=== PATIENT | female | born 1940 | race Caucasian/White ===

== ENCOUNTER 2017-10-28 07:09 | Emergency (ER) | payer MEDICARE, OTHER ==
[2017-10-28 07:54] LABS: #Eosinphils 0.1 thou/uL (0.0-0.7); #Lymphocytes 0.8 thou/uL (1.20-3.40); #Monocytes 0.8 thou/uL (0.11-0.59); #Neutrophils 11.6 thou/uL (1.40-6.50); %Basophils 0.2 % (0.0-1.0); %Eosinophils 0.8 % (0.0-10.0); %Monocytes 6.2 % (0.0-10.0); %Neutrophils 86.9 % (42.0-75.0); Hemoglobin 15.2 g/dL (12.0-16.0); Mean Corpuscular HGB CONC 33.6 g/dL (32.0-36.0); Mean Corpuscular Hemoglobin 32.7 pg (27.0-31.0); Mean Corpuscular Volume 97.3 fL (78.0-98.0); Mean Platelet Volume 7.2 fL (7.4-10.4); Platelet Count 171 thou/uL (130-400); Red Blood Cell (RBC) Count 4.66 mill/uL (4.20-5.40); White Blood Cell (WBC) Count 13.3 thou/uL (4.8-10.8)
[2017-10-28 08:16] LABS: ALT (SGPT) 10 U/L (8-55); AST (SGOT) 16 U/L (5-34); Albumin 4.2 g/dL (3.4-4.8); Alkaline Phosphatase 79 U/L (40-150); Anion Gap 12 mmol/L (10-20); BUN (Urea Nitrogen) 11 mg/dL (9.8-20.1); Calc. Creatinine Clearance 0 mL/min (70-130); Calcium 9.7 mg/dL (7.8-10.44); Carbon Dioxide 26 mmol/L (23-31); Chloride 107 mmol/L (98-107); Estimated GFR-MDRD 73; Glucose 148 mg/dL (83-110); Lipase 16 U/L (8-78); Protein, Total 7.2 g/dL (6.0-8.3); Sodium 141 mmol/L (136-145)
[2017-10-28 08:40] LABS: Bilirubin Negative (Negative); Blood, Urine Negative (Negative); Clarity CLEAR (Clear); Glucose, Urine (Dipstick) Negative (Negative); Leukocyte Negative (Negative); Nitrite Negative (Negative); Protein, Urine (Dipstick) Negative (Neg-Trace); Specific Gravity, Urine 1.012 (1.002-1.036); Urobilinogen 0.2 mg/dL (0.2-1.0); pH, Urine 6.5 (5.0-9.0)
--- NOTE | 2017-10-28 10:16 | CT ---
CT OF THE ABDOMEN AND PELVIS WITH IV CONTRAST: Date; 10/28/17 PROVIDED CLINICAL HISTORY: Abdominal pain. FINDINGS: Comparison made with the study dated 04/21/17. Visualized lung bases are free of significant opacity. The solid abdominal organs demonstrate a stable CT appearance. There is focal mural thickening and inflammatory fat stranding involving the mid descending colon wit h diverticula seen in this region. There is no evidence for focal fluid collection or extraluminal ga s. There is no bowel dilatation, additional inflammatory fat stranding, or free air apparent. Trace free fluid in the pelvic cul-de-sac. Pessary device is seen. Vascular calcifications are noted. Changes of prior cholecystectomy are seen. The osseous structures demonstrate no concerning lytic or blastic lesions. Degenerative changes are s een. IMPRESSION: Findings compatible with uncomplicated descending colon diverticulitis. POS: [facility]L
[2017-10-28] MEDS ORDERED: ISOVUE-370 76%-LOCM 1 ML ONE (12:23)
== END 2017-10-28 09:38 | disposition home or self-care (01) ==
LOC: ERS 07:09
DX: K57.92 Diverticulitis of intestine, part unspecified, without perforation or abscess without bleeding (principal); E03.9 Hypothyroidism, unspecified; I10 Essential (primary) hypertension; E78.5 Hyperlipidemia, unspecified; Z79.891 Long term (current) use of opiate analgesic; Z79.899 Other long term (current) drug therapy; Z79.82 Long term (current) use of aspirin
CPT/HCPCS: 36415; 74177; 80053; 81003; 83690; 85025; 96360; 96361

== ENCOUNTER 2020-12-20 00:43 | Emergency (ER) | payer MEDICARE, OTHER ==
[2020-12-20 01:16] LABS: #Eosinphils 0.2 thou/uL (0.0-0.7); #Lymphocytes 1.1 thou/uL (1.20-3.40); #Monocytes 0.7 thou/uL (0.11-0.59); #Neutrophils 9.3 thou/uL (1.40-6.50); %Basophils 0.2 % (0.0-1.0); %Eosinophils 1.6 % (0.0-10.0); %Lymphocytes 9.9 % (21.0-51.0); %Monocytes 6.3 % (0.0-10.0); Hemoglobin 14.8 g/dL (12.0-16.0); Mean Corpuscular HGB CONC 36.5 g/dL (32.0-36.0); Mean Corpuscular Hemoglobin 35.4 pg (27.0-31.0); Mean Platelet Volume 7.1 fL (7.4-10.4); Platelet Count 247 thou/uL (130-400); RBC Distribution Width 11.4 % (11.5-14.5); Red Blood Cell (RBC) Count 4.17 mill/uL (4.20-5.40); White Blood Cell (WBC) Count 11.3 thou/uL (4.8-10.8)
[2020-12-20 01:38] LABS: ALT (SGPT) 10 U/L (8-55); AST (SGOT) 20 U/L (5-34); Albumin 3.8 g/dL (3.4-4.8); Alkaline Phosphatase 73 U/L (40-110); Anion Gap 14 mmol/L (10-20); BUN (Urea Nitrogen) 17 mg/dL (9.8-20.1); Bilirubin, Total 0.6 mg/dL (0.2-1.2); Calc. Creatinine Clearance 0 mL/min (70-130); Calcium 9.6 mg/dL (7.8-10.44); Carbon Dioxide 24 mmol/L (23-31); Chloride 104 mmol/L (98-107); Globulin 3.4 g/dL (2.4-3.5); Glucose 145 mg/dL (83-110); Lipase 17 U/L (8-78); Potassium 4.2 mmol/L (3.5-5.1); Protein, Total 7.2 g/dL (5.8-8.1); Sodium 138 mmol/L (136-145)
[2020-12-20 02:08] LABS: Bilirubin Negative (Negative); Blood, Urine Negative (Negative); Clarity Turbid (Clear); Glucose, Urine (Dipstick) Normal (Negative); Ketone, Urine Negative (Negative); Leukocyte Negative Leu/uL (Negative); Nitrite Negative (Negative); Protein, Urine (Dipstick) 10 mg/dL (Neg-Trace); Urobilinogen Normal mg/dL (Less than 2)
[2020-12-20] MEDS ORDERED: Iopamidol-370 76% 500 ML 1 ML ONE (09:53)
== END 2020-12-20 04:43 | disposition home or self-care (01) ==
LOC: ERS 00:43
DX: K57.32 Diverticulitis of large intestine without perforation or abscess without bleeding (principal); E03.9 Hypothyroidism, unspecified; I10 Essential (primary) hypertension; E78.5 Hyperlipidemia, unspecified; E78.00 Pure hypercholesterolemia, unspecified; Z79.82 Long term (current) use of aspirin; Z79.899 Other long term (current) drug therapy
CPT/HCPCS: 36415; 74177; 80053; 81003; 83690; 85025; Q9967

== ENCOUNTER 2020-12-31 15:52 | Observation (INO) | payer MEDICARE, OTHER ==
[2020-12-31 17:02] LABS: Hemoglobin 15.3 g/dL (12.0-16.0); Mean Corpuscular HGB CONC 33.6 g/dL (32.0-36.0); Mean Corpuscular Hemoglobin 32.4 pg (27.0-31.0); Mean Corpuscular Volume 96.5 fL (78.0-98.0); Platelet Count 250 thou/uL (130-400); RBC Distribution Width 11.3 % (11.5-14.5); Red Blood Cell (RBC) Count 4.73 mill/uL (4.20-5.40); White Blood Cell (WBC) Count 14.8 thou/uL (4.8-10.8)
[2020-12-31 17:08] LABS: Platelet Count 250 thou/uL (130-400)
[2020-12-31 17:10] LABS: Fibrinogen 362 mg/dL (253-463)
[2020-12-31] MEDS ORDERED: Piperacillin/Tazobactam 4.5 GM VIAL ONE (17:10)
[2020-12-31 17:11] LABS: PTT 29.1 sec (22.9-36.1); Prothrombin Time 13.1 sec (12.0-14.7)
[2020-12-31 17:12] LABS: D-Dimer Test 1.28 *mcg/mL (0.27-0.43)
[2020-12-31 17:19] LABS: Band 18 % (5-11); Lymphocytes 1 % (21-51); MDiff Complete? YES; Neutrophil 80 % (42-75); Platelet Morphology Comment Appears Adequate; RBC Morphology Normal; Reactive Lymphocytes 1 % (0-10); Vacuoles SLIGHT
[2020-12-31 17:20] LABS: FSP-Qualitative ABNORMAL (Normal); FSP-Semiquantitative >=5 & <20 mcg/mL (Less than 5)
[2020-12-31 17:28] LABS: ALT (SGPT) 10 U/L (8-55); AST (SGOT) 20 U/L (5-34); Albumin 4.1 g/dL (3.4-4.8); Alkaline Phosphatase 74 U/L (40-110); Anion Gap 17 mmol/L (10-20); BUN (Urea Nitrogen) 20 mg/dL (9.8-20.1); Bilirubin, Total 0.6 mg/dL (0.2-1.2); Calc. Creatinine Clearance 0 mL/min (70-130); Calcium 9.6 mg/dL (7.8-10.44); Carbon Dioxide 22 mmol/L (23-31); Chloride 102 mmol/L (98-107); Globulin 2.9 g/dL (2.4-3.5); Glucose 178 mg/dL (83-110); Potassium 3.6 mmol/L (3.5-5.1); Sodium 137 mmol/L (136-145)
[2020-12-31] MEDS ORDERED: Midazolam HCl 2 mg/2 ml Vial ONE (20:12)
[2020-12-31 21:28] LABS: Bilirubin Negative (Negative); Blood, Urine Negative (Negative); Clarity Clear (Clear); Glucose, Urine (Dipstick) Normal (Negative); Ketone, Urine 10 mg/dL (Negative); Leukocyte Negative Leu/uL (Negative); Nitrite Negative (Negative); Protein, Urine (Dipstick) Negative (Neg-Trace); Urobilinogen Normal mg/dL (Less than 2); pH, Urine 5.5 (5.0-9.0)
[2020-12-31 21:29] LABS: Specific Gravity, Urine Greater than 1.060 (1.002-1.036)
[2020-12-31] MEDS ORDERED: Dextrose 5 %-0.45 % NaCl 1,000 ML IV SCH (23:15)
[2020-12-31] MEDS ORDERED: Piperacillin/Tazobactam 3.375 GM in Sodium Chloride 0.9% 100 ML IVPB SCH (23:30)
[2021-01-01 01:00] VITALS: BMI 28.0
[2021-01-01] MEDS: Piperacillin/Tazobactam 3.375 GM in Sodium Chloride 0.9% 100 ML IVPB SCH ×3 (06:23→23:04)
[2021-01-01] MEDS: Sodium Chloride 0.9% 1,000 ML IV SCH ×3 (06:24→23:24)
[2021-01-01] MEDS ORDERED: Piperacillin/Tazobactam 3.375 GM in Sodium Chloride 0.9% 100 ML IVPB SCH (09:00)
[2021-01-01] MEDS ORDERED: MD-Gastroview 120 ML BOT ONE (15:17)
[2021-01-01 17:14] LABS: SARS-CoV-2 PCR by NAA Not Detected (NotDetected)
[2021-01-02 09:03] LABS: #Lymphocytes 0.9 thou/uL (1.20-3.40); #Monocytes 0.4 thou/uL (0.11-0.59); #Neutrophils 6.5 thou/uL (1.40-6.50); %Basophils 0.2 % (0.0-1.0); %Eosinophils 0.4 % (0.0-10.0); %Lymphocytes 11.5 % (21.0-51.0); %Monocytes 5.6 % (0.0-10.0); %Neutrophils 82.3 % (42.0-75.0); Hemoglobin 13.9 g/dL (12.0-16.0); Mean Corpuscular HGB CONC 33.6 g/dL (32.0-36.0); Mean Corpuscular Hemoglobin 32.7 pg (27.0-31.0); Mean Corpuscular Volume 97.3 fL (78.0-98.0); Mean Platelet Volume 7.1 fL (7.4-10.4); Platelet Count 234 thou/uL (130-400); RBC Distribution Width 11.5 % (11.5-14.5); Red Blood Cell (RBC) Count 4.27 mill/uL (4.20-5.40); White Blood Cell (WBC) Count 7.9 thou/uL (4.8-10.8)
[2021-01-02 09:21] LABS: Anion Gap 15 mmol/L (10-20); BUN (Urea Nitrogen) 22 mg/dL (9.8-20.1); Calc. Creatinine Clearance 59 mL/min (70-130); Calcium 9.4 mg/dL (7.8-10.44); Carbon Dioxide 22 mmol/L (23-31); Chloride 109 mmol/L (98-107); Glucose 156 mg/dL (83-110); Potassium 3.7 mmol/L (3.5-5.1); Sodium 142 mmol/L (136-145)
[2021-01-02] MEDS: Sodium Chloride 0.9% 1,000 ML IV SCH (09:39)
[2021-01-02] MEDS: Piperacillin/Tazobactam 3.375 GM in Sodium Chloride 0.9% 100 ML IVPB SCH (09:39)
[2021-01-02 16:57] VITALS: BP 144/73; TEMP 98.3
== END 2021-01-02 16:46 | disposition home or self-care (01) ==
LOC: ERS 15:52 → SURG A 21:12
PROVIDERS: ADMIT Student in an Organized Health Care Education/Training Program; ATTEND Internal Medicine
DX: K56.600 Partial intestinal obstruction, unspecified as to cause (principal); K57.32 Diverticulitis of large intestine without perforation or abscess without bleeding; E03.9 Hypothyroidism, unspecified; E78.5 Hyperlipidemia, unspecified; I10 Essential (primary) hypertension; Z79.2 Long term (current) use of antibiotics; Z88.2 Allergy status to sulfonamides; Z88.8 Allergy status to other drugs, medicaments and biological substances; Z20.822 Contact with and (suspected) exposure to COVID-19
CPT/HCPCS: 74177; 74250; 80048; 80053; 81003; 83605; 85025 ×2; 85049; 85300; 85362; 85379; 85384; 85610; 85730; 87040; 96365; 96375; 99285; U0003; U0005; 36415; G0378; J2250; J2543; J3490; J7042; J7050; Q9963

== ENCOUNTER 2021-03-08 10:29 | Outpatient (CLI) | payer MEDICARE, OTHER ==
[2021-03-08] MEDS ORDERED: Iopamidol 370 76% 100 ML VIAL ONE (11:03)
[2021-03-08] MEDS ORDERED: Iopamidol 370 76% 50 ML VIAL FS ONE (11:03)
== END 2021-03-08 10:30 | disposition home or self-care (01) ==
LOC: CT 10:29
PROVIDERS: ATTEND Internal Medicine Gastroenterology
DX: R10.32 Left lower quadrant pain (principal); K57.30 Diverticulosis of large intestine without perforation or abscess without bleeding; K76.9 Liver disease, unspecified; Z90.710 Acquired absence of both cervix and uterus; Z90.49 Acquired absence of other specified parts of digestive tract
CPT/HCPCS: 74177; Q9967

== ENCOUNTER 2021-09-10 21:30 | Inpatient (IN) | payer MEDICARE, OTHER ==
[2021-09-10] MEDS ORDERED: Aspirin Chewable 81 MG TAB ONE (22:15)
[2021-09-11 00:57] VITALS: BMI 25.6
[2021-09-11] MEDS ORDERED: Ondansetron PF 4 MG/2 ML Vial IVP PRN (01:15)
[2021-09-11] MEDS ORDERED: Acetaminophen 325 MG TAB PO PRN (01:15)
[2021-09-11] MEDS ORDERED: Ondansetron ODT 4 MG TAB SL PRN (01:15)
[2021-09-11] MEDS ORDERED: Lorazepam 0.5 MG TAB PO PRN (04:07)
[2021-09-11] MEDS ORDERED: Lorazepam 2 MG/ML VIAL SLOW IVP PRN (04:10)
[2021-09-11] MEDS ORDERED: Lorazepam 2 MG/ML VIAL SLOW IVP SCH (13:00)
[2021-09-11 15:48] LABS: SARS-CoV-2 PCR by NAA Not Detected (NotDetected)
[2021-09-11] MEDS ORDERED: Magnevist 469MG/ML 20 ML VIAL ONE (16:32)
[2021-09-11] MEDS ORDERED: Atorvastatin Calcium 40 MG TAB PO SCH (21:00)
[2021-09-12 00:02] LABS: Bacteria/HPF None Seen HPF (None Seen); Bilirubin Negative (Negative); Blood, Urine Negative (Negative); Clarity Clear (Clear); Glucose, Urine (Dipstick) Normal (Negative); Ketone, Urine Negative (Negative); Leukocyte Negative Leu/uL (Negative); Nitrite Negative (Negative); Protein, Urine (Dipstick) Negative (Neg-Trace); RBC/HPF 0-3 HPF (0-3); Specific Gravity, Urine 1.008 (1.002-1.036); Squamous Epithelial None Seen HPF (0-3); Urobilinogen Normal mg/dL (Less than 2); WBC/HPF 0-3 HPF (0-3)
[2021-09-12 00:07] LABS: Urine Culture Reflex No No
[2021-09-12 05:49] LABS: Cardiac Risk 5.2 (Less than 4.5)
[2021-09-12] MEDS ORDERED: Aspirin 81 mg Enteric Coated Tablet PO SCH (09:00)
[2021-09-12] MEDS: Enoxaparin Sodium 30 MG/0.3 ML SYRINGE SC SCH (09:15)
[2021-09-12] MEDS ORDERED: Losartan 25 MG TAB PO SCH (10:00)
[2021-09-12] MEDS ORDERED: Carvedilol 3.125 MG TAB PO SCH (21:00)
[2021-09-12] MEDS: Carvedilol 6.25 MG TAB PO SCH (21:57)
[2021-09-12] MEDS: Acetaminophen 325 MG TAB PO PRN (22:30)
[2021-09-13 05:29] LABS: #Eosinphils 0.2 thou/uL (0.0-0.7); #Lymphocytes 1.4 thou/uL (1.20-3.40); #Monocytes 0.5 thou/uL (0.11-0.59); #Neutrophils 2.1 thou/uL (1.40-6.50); %Basophils 0.9 % (0.0-1.0); %Eosinophils 4.8 % (0.0-10.0); %Lymphocytes 33.6 % (21.0-51.0); %Neutrophils 49.7 % (42.0-75.0); Hemoglobin 14.8 g/dL (12.0-16.0); Mean Corpuscular HGB CONC 28.7 g/dL (32.0-36.0); Mean Corpuscular Hemoglobin 27.6 pg (27.0-31.0); Mean Corpuscular Volume 96.4 fL (78.0-98.0); Mean Platelet Volume 7.1 fL (7.4-10.4); Platelet Count 224 thou/uL (130-400); RBC Distribution Width 16.6 % (11.5-14.5); Red Blood Cell (RBC) Count 5.36 mill/uL (4.20-5.40); White Blood Cell (WBC) Count 4.2 thou/uL (4.8-10.8)
[2021-09-13 05:52] LABS: Anion Gap 12 mmol/L (10-20); BUN (Urea Nitrogen) 16 mg/dL (9.8-20.1); Calc. Creatinine Clearance 65 mL/min (70-130); Calcium 9.5 mg/dL (7.8-10.44); Carbon Dioxide 24 mmol/L (23-31); Chloride 106 mmol/L (98-107); Glucose 123 mg/dL (83-110); Potassium 3.6 mmol/L (3.5-5.1); Sodium 138 mmol/L (136-145)
[2021-09-13] MEDS: Levothyroxine Sodium 50 MCG TAB PO SCH (06:06)
[2021-09-13] MEDS: Levothyroxine Sodium 125 MCG TAB PO SCH (06:21)
[2021-09-13] MEDS ORDERED: Losartan 25 MG TAB PO SCH (09:00)
[2021-09-13] MEDS: Metamucil PACK PO SCH (09:09)
[2021-09-13] MEDS: Aspirin Chewable 81 MG TAB PO SCH (09:09)
[2021-09-13] MEDS: Ezetimibe 10 MG TAB PO SCH (09:09)
[2021-09-13] MEDS: Saccharomyces boulardii 250 MG CAP PO SCH (09:09)
[2021-09-13] MEDS: Carvedilol 6.25 MG TAB PO SCH ×2 (09:09→20:58)
[2021-09-13] MEDS: Losartan 25 MG TAB PO SCH (09:09)
[2021-09-13] MEDS: Enoxaparin Sodium 30 MG/0.3 ML SYRINGE SC SCH (09:10)
[2021-09-13] MEDS: Polyethylene Glycol 3350 17 GM Packet PO SCH (09:10)
[2021-09-13] MEDS: Acetaminophen 325 MG TAB PO PRN (10:36)
[2021-09-14 06:09] LABS: Anion Gap 12 mmol/L (10-20); BUN (Urea Nitrogen) 16 mg/dL (9.8-20.1); Calc. Creatinine Clearance 62 mL/min (70-130); Calcium 9.5 mg/dL (7.8-10.44); Carbon Dioxide 25 mmol/L (23-31); Chloride 106 mmol/L (98-107); Glucose 112 mg/dL (83-110); Potassium 3.8 mmol/L (3.5-5.1); Sodium 139 mmol/L (136-145)
[2021-09-14 06:13] LABS: #Eosinphils 0.2 thou/uL (0.0-0.7); #Lymphocytes 1.6 thou/uL (1.20-3.40); #Monocytes 0.4 thou/uL (0.11-0.59); #Neutrophils 2.3 thou/uL (1.40-6.50); %Basophils 0.5 % (0.0-1.0); %Eosinophils 4.9 % (0.0-10.0); %Lymphocytes 35.3 % (21.0-51.0); %Monocytes 8.5 % (0.0-10.0); %Neutrophils 50.8 % (42.0-75.0); Hemoglobin 14.6 g/dL (12.0-16.0); Mean Corpuscular HGB CONC 32.9 g/dL (32.0-36.0); Mean Corpuscular Hemoglobin 33.2 pg (27.0-31.0); Mean Platelet Volume 6.8 fL (7.4-10.4); Platelet Count 219 thou/uL (130-400); Red Blood Cell (RBC) Count 4.41 mill/uL (4.20-5.40); White Blood Cell (WBC) Count 4.5 thou/uL (4.8-10.8)
[2021-09-14] MEDS: Levothyroxine Sodium 50 MCG TAB PO SCH ×3 (06:15→06:41)
[2021-09-14] MEDS: Levothyroxine Sodium 125 MCG TAB PO SCH (06:15)
[2021-09-14] MEDS: Ezetimibe 10 MG TAB PO SCH (08:22)
[2021-09-14] MEDS: Carvedilol 6.25 MG TAB PO SCH ×2 (08:22→20:15)
[2021-09-14] MEDS: Losartan 25 MG TAB PO SCH (08:22)
[2021-09-14] MEDS: Aspirin Chewable 81 MG TAB PO SCH (08:22)
[2021-09-14] MEDS: Saccharomyces boulardii 250 MG CAP PO SCH (08:22)
[2021-09-14] MEDS: Polyethylene Glycol 3350 17 GM Packet PO SCH (10:31)
[2021-09-14] MEDS: Metamucil PACK PO SCH ×2 (10:31→17:18)
[2021-09-14] MEDS ORDERED: PROPOFOL 200 MG/20 ML VIAL ONE (14:09)
[2021-09-14] MEDS: Enoxaparin Sodium 30 MG/0.3 ML SYRINGE SC SCH (16:51)
[2021-09-15] MEDS: Levothyroxine Sodium 125 MCG TAB PO SCH (05:14)
[2021-09-15] MEDS: Levothyroxine Sodium 50 MCG TAB PO SCH (05:15)
[2021-09-15] MEDS ORDERED: Lidocaine 1% w/Epinephrine 1:100K 20 ML VIAL ONE (07:26)
[2021-09-15] MEDS: Polyethylene Glycol 3350 17 GM Packet PO SCH (10:38)
[2021-09-15] MEDS: Metamucil PACK PO SCH (10:39)
[2021-09-15] MEDS: Losartan 25 MG TAB PO SCH (10:39)
[2021-09-15] MEDS: Aspirin Chewable 81 MG TAB PO SCH (10:39)
[2021-09-15] MEDS: Ezetimibe 10 MG TAB PO SCH (10:40)
[2021-09-15] MEDS: Enoxaparin Sodium 30 MG/0.3 ML SYRINGE SC SCH (10:40)
[2021-09-15] MEDS: Saccharomyces boulardii 250 MG CAP PO SCH (10:40)
[2021-09-15] MEDS: Carvedilol 6.25 MG TAB PO SCH (10:40)
[2021-09-15 12:01] VITALS: TEMP 98.4
[2021-09-15 17:37] VITALS: BP 129/64
== END 2021-09-15 20:30 | DRG 41 ==
LOC: ERS 21:30 → 2NO 23:38 → NEURO 09-11 16:59
PROVIDERS: ADMIT Hospitalist; ATTEND Hospitalist
PROC: B24BZZ4 Ultrasonography of Heart with Aorta, Transesophageal (ICD-10-PCS; principal; 2021-09-14)
PROC: 0JH632Z Insertion of Monitoring Device into Chest Subcutaneous Tissue and Fascia, Percutaneous Approach (ICD-10-PCS; 2021-09-15)
DX: I63.532 Cerebral infarction due to unspecified occlusion or stenosis of left posterior cerebral artery (principal); G81.91 Hemiplegia, unspecified affecting right dominant side; R29.704 NIHSS score 4; Z20.822 Contact with and (suspected) exposure to COVID-19; R47.01 Aphasia; R47.81 Slurred speech; E03.9 Hypothyroidism, unspecified; I10 Essential (primary) hypertension; E78.5 Hyperlipidemia, unspecified; E78.00 Pure hypercholesterolemia, unspecified; H53.461 Homonymous bilateral field defects, right side; G43.909 Migraine, unspecified, not intractable, without status migrainosus; R33.9 Retention of urine, unspecified; Z28.21 Immunization not carried out because of patient refusal; Z88.2 Allergy status to sulfonamides; Z88.8 Allergy status to other drugs, medicaments and biological substances; Z90.49 Acquired absence of other specified parts of digestive tract; Z90.89 Acquired absence of other organs; Z90.710 Acquired absence of both cervix and uterus; Z79.899 Other long term (current) drug therapy; Z79.82 Long term (current) use of aspirin; Z79.890 Hormone replacement therapy
CPT/HCPCS: 33285; 36415; 36416; 70553; 80048; 80061; 81001; 85025; 87086; 93005; 93010; 93306; 93312; 99285; A9579; C1764; J1650; J2060; J2704; U0003; U0005

== ENCOUNTER 2022-02-24 14:00 | Inpatient (IN) | payer MEDICARE, OTHER ==
[2022-02-24] MEDS ORDERED: Fentanyl CADD 100 ML IV SCH (14:15)
[2022-02-24 14:50] LABS: Actual Bicarbonate (HCO3a) 21.2 mEq/L (22-28); Analyzer IN Cardio ER; Base Excess (BEa) -0.2 mEq/L (-2.0 to +3.0); CO2 Tension 27.1 mmHg (35.0-45.0); Calcium, Ionized (arterial) 1.18 mmol/L (1.12-1.30); Carboxyhemoglobin (COHb) 0.3 gm% (0.0-3.0); O2 Tension (PaO2), arterial 190.1 mmHg (> 60.0); Potassium - ABG Lab 3.54 mmol/L (3.70-5.30); pH, Arterial 7.51 (7.35-7.45)
[2022-02-24 14:51] LABS: ALV-art Gradient 61.225 mmHg (0-20); Puncture Site RRA
[2022-02-24] MEDS ORDERED: Electrolyte Replacement Protocol 1 EACH IVPB SCH (16:04)
[2022-02-24] MEDS ORDERED: Ondansetron PF 4 MG/2 ML Vial IVP PRN (16:04)
[2022-02-24] MEDS ORDERED: Acetaminophen 650 MG Suppository PR PRN (16:04)
[2022-02-24] MEDS ORDERED: [UNRECOGNIZED DRUG - REMARK] FS SCH (16:10)
[2022-02-24] MEDS ORDERED: Labetalol HCl 100 MG/20 ML VIAL SLOW IVP PRN (16:10)
[2022-02-24] MEDS ORDERED: niCARdipine 25 MG in Sodium Chloride 0.9% 250 ML 250 ML IVPB PRN (16:10)
[2022-02-24] MEDS ORDERED: hydrALAZINE 20 MG/ML VIAL SLOW IVP PRN (16:10)
[2022-02-24] MEDS ORDERED: Propofol 1,000 MG/100 ML VIAL IV ONE (16:19)
[2022-02-24 16:56] LABS: SARS-CoV-2 NAA Rapid Test Not Detected (NotDetected)
[2022-02-24] MEDS ORDERED: Propofol 1,000 MG/100 ML VIAL IV PRN (17:15)
[2022-02-24] MEDS ORDERED: Propofol BOLUS 1,000 MG/100 ML VIAL IV PRN (17:15)
[2022-02-24] MEDS: levETIRAcetam 500 MG/5 ML VIAL SLOW IVP SCH (20:21)
[2022-02-24] MEDS ORDERED: levETIRAcetam in NS 500 MG in Premix Bag 1 BAG IVPB SCH (21:00)
[2022-02-25 07:55] LABS: Actual Bicarbonate (HCO3a) 23.5 mEq/L (22-28); Base Excess (BEa) 0.9 mEq/L (-2.0 to +3.0); CO2 Tension 31.7 mmHg (35.0-45.0); Carboxyhemoglobin (COHb) 0.4 gm% (0.0-3.0); Hemoglobin (Hb) 14.3 g/dL (12.0-16.0); O2 Tension (PaO2), arterial 142.7 mmHg (> 60.0); Potassium - ABG Lab 3.46 mmol/L (3.70-5.30); pH, Arterial 7.49 (7.35-7.45)
[2022-02-25 07:57] LABS: ALV-art Gradient 102.875 mmHg (0-20); Puncture Site LB
[2022-02-25] MEDS ORDERED: FLU VACC QS2022-23(65YR UP)/PF 240 MCG/0.7 ML SYRINGE IM ONE (09:00)
[2022-02-25] MEDS: Pantoprazole 40 MG VIAL IVP SCH (09:03)
[2022-02-25] MEDS: levETIRAcetam 500 MG/5 ML VIAL SLOW IVP SCH ×2 (09:03→20:04)
[2022-02-25] MEDS: Lactated Ringer's 1,000 ML IV SCH (09:56)
[2022-02-25 12:50] VITALS: BMI 26.9
[2022-02-25 13:12] LABS: #Monocytes 0.9 thou/uL (0.11-0.59); #Neutrophils 8.9 thou/uL (1.40-6.50); %Basophils 0.2 % (0.0-1.0); %Eosinophils 0.4 % (0.0-10.0); %Lymphocytes 9.1 % (21.0-51.0); %Monocytes 8.2 % (0.0-10.0); Hemoglobin 13.9 g/dL (12.0-16.0); Mean Corpuscular Hemoglobin 32.4 pg (27.0-31.0); Mean Corpuscular Volume 98.3 fl (78.0-98.0); Mean Platelet Volume 6.9 fL (7.4-10.4); Platelet Count 209 10x3/uL (130-400); RBC Distribution Width 11.8 % (11.5-14.5); Red Blood Cell (RBC) Count 4.29 mill/uL (4.20-5.40); White Blood Cell (WBC) Count 10.8 10x3/uL (4.8-10.8)
[2022-02-25 13:34] LABS: Anion Gap 9 mmol/L (10-20); BUN (Urea Nitrogen) 13 mg/dL (9.8-20.1); Calc. Creatinine Clearance 64 mL/min (70-130); Calcium 9.4 mg/dL (7.8-10.44); Carbon Dioxide 25 mmol/L (23-31); Cardiac Risk 2.1 (Less than 4.5); Chloride 106 mmol/L (98-107); Cholesterol 101 mg/dl (< 200 Desired); Estimated GFR 88; Glucose 124 mg/dL (83-110); HDL Cholesterol 49 mg/dL (>60 Neg Risk); LDL Cholesterol, Calculated 41 mg/dL; Magnesium 1.9 mg/dL (1.6-2.6); Potassium 3.4 mmol/L (3.5-5.1); Sodium 137 mmol/L (136-145); Triglycerides 54 mg/dL (Less than 150)
[2022-02-25] MEDS ORDERED: Electrolyte Replacement Protocol FS PRN (17:15)
[2022-02-25] MEDS ORDERED: Magnesium 2 GM/50 ML(in water) 2 GM in Premix Bag 1 BAG IVPB SCH (17:15)
[2022-02-25] MEDS: Potassium Chloride 20 MEQ in Premix Bag 1 BAG IVPB SCH ×2 (18:05→20:04)
[2022-02-25] MEDS: Rosuvastatin 10 MG TAB PO SCH (20:04)
[2022-02-26] MEDS: Lactated Ringer's 1,000 ML IV SCH ×3 (01:26→15:47)
[2022-02-26 04:26] LABS: #Monocytes 0.8 thou/uL (0.11-0.59); #Neutrophils 7.6 thou/uL (1.40-6.50); %Basophils 0.2 % (0.0-1.0); %Eosinophils 0.4 % (0.0-10.0); %Lymphocytes 10.8 % (21.0-51.0); %Neutrophils 80.6 % (42.0-75.0); Hemoglobin 12.2 g/dL (12.0-16.0); Mean Corpuscular HGB CONC 33.8 g/dL (32.0-36.0); Mean Corpuscular Hemoglobin 33.1 pg (27.0-31.0); Mean Platelet Volume 7.1 fL (7.4-10.4); Platelet Count 174 10x3/uL (130-400); RBC Distribution Width 11.7 % (11.5-14.5); Red Blood Cell (RBC) Count 3.67 mill/uL (4.20-5.40); White Blood Cell (WBC) Count 9.4 10x3/uL (4.8-10.8)
[2022-02-26 04:49] LABS: Anion Gap 9 mmol/L (10-20); BUN (Urea Nitrogen) 10 mg/dL (9.8-20.1); Calc. Creatinine Clearance 78 mL/min (70-130); Calcium 8.8 mg/dL (7.8-10.44); Carbon Dioxide 25 mmol/L (23-31); Chloride 105 mmol/L (98-107); Estimated GFR 92; Glucose 123 mg/dL (83-110); Potassium 3.6 mmol/L (3.5-5.1); Sodium 135 mmol/L (136-145)
[2022-02-26] MEDS ORDERED: Magnesium 2 GM/50 ML(in water) 2 GM in Premix Bag 1 BAG IVPB SCH (06:15)
[2022-02-26 08:36] LABS: Actual Bicarbonate (HCO3v) 24 mEq/L (22-28); Base Excess -0.3 mEq/L (-2.0 to +3.0); Calcium, Ionized (venous) 1.22 mmol/L (1.16-1.32); Chloride (VBG) 102 mmol/L (98-106); Hemoglobin (Hb) 13.4 g/dL (11.7-16.1); Potassium (VBG) 3.93 mmol/L (3.70-5.30); Sodium 134.6 mmol/L (133-146); pH (venous) 7.43 (7.32-7.43)
[2022-02-26] MEDS ORDERED: Aspirin 300 MG Suppository PR SCH (09:00)
[2022-02-26] MEDS: Aspirin 325 MG TAB PER TUBE SCH (09:13)
[2022-02-26] MEDS: Pantoprazole 40 MG VIAL IVP SCH (09:13)
[2022-02-26] MEDS: levETIRAcetam 500 MG/5 ML VIAL SLOW IVP SCH ×2 (09:14→21:51)
[2022-02-26] MEDS: Senokot S 8.6-50 MG TAB PO SCH (21:51)
[2022-02-26] MEDS: Rosuvastatin 10 MG TAB PO SCH (21:51)
[2022-02-27 04:43] LABS: #Eosinphils 0.1 thou/uL (0.0-0.7); #Lymphocytes 0.8 thou/uL (1.20-3.40); #Monocytes 0.7 thou/uL (0.11-0.59); #Neutrophils 5.4 thou/uL (1.40-6.50); %Basophils 0.1 % (0.0-1.0); %Eosinophils 1.5 % (0.0-10.0); %Lymphocytes 11.8 % (21.0-51.0); %Monocytes 9.6 % (0.0-10.0); %Neutrophils 77.1 % (42.0-75.0); Hemoglobin 11.5 g/dL (12.0-16.0); Mean Corpuscular HGB CONC 33.4 g/dL (32.0-36.0); Mean Corpuscular Hemoglobin 32.8 pg (27.0-31.0); Mean Corpuscular Volume 98.2 fl (78.0-98.0); Platelet Count 168 10x3/uL (130-400); RBC Distribution Width 11.5 % (11.5-14.5); Red Blood Cell (RBC) Count 3.52 mill/uL (4.20-5.40)
[2022-02-27 04:55] LABS: Anion Gap 8 mmol/L (10-20); BUN (Urea Nitrogen) 9 mg/dL (9.8-20.1); Calc. Creatinine Clearance 73 mL/min (70-130); Calcium 8.8 mg/dL (7.8-10.44); Carbon Dioxide 28 mmol/L (23-31); Chloride 106 mmol/L (98-107); Estimated GFR 90; Glucose 138 mg/dL (83-110); Potassium 3.6 mmol/L (3.5-5.1); Sodium 138 mmol/L (136-145)
[2022-02-27] MEDS: Lactated Ringer's 1,000 ML IV SCH ×2 (06:36→15:23)
[2022-02-27] MEDS ORDERED: Levothyroxine Sodium 50 MCG TAB PER TUBE SCH (09:00)
[2022-02-27] MEDS: Aspirin 325 MG TAB PER TUBE SCH (09:37)
[2022-02-27] MEDS: Clopidogrel Bisulfate 75 MG TAB PER TUBE SCH (09:37)
[2022-02-27] MEDS: Polyethylene Glycol 3350 17 GM Packet PER TUBE SCH (09:37)
[2022-02-27] MEDS: Senokot S 8.6-50 MG TAB PO SCH ×2 (09:37→21:18)
[2022-02-27] MEDS: Pantoprazole 40 MG VIAL IVP SCH (09:38)
[2022-02-27] MEDS: levETIRAcetam 500 MG/5 ML VIAL SLOW IVP SCH (09:40)
[2022-02-27] MEDS ORDERED: Lorazepam 2 MG/ML VIAL SLOW IVP PRN (10:45)
[2022-02-27] MEDS: Rosuvastatin 10 MG TAB PO SCH (21:18)
[2022-02-28] MEDS: Levothyroxine Sodium 50 MCG TAB PER TUBE SCH (05:15)
[2022-02-28] MEDS: Aspirin 325 MG TAB PER TUBE SCH (08:25)
[2022-02-28] MEDS: Senokot S 8.6-50 MG TAB PO SCH ×2 (08:25→20:43)
[2022-02-28] MEDS: Clopidogrel Bisulfate 75 MG TAB PER TUBE SCH (08:25)
[2022-02-28] MEDS: Polyethylene Glycol 3350 17 GM Packet PER TUBE SCH ×2 (08:26→08:36)
[2022-02-28] MEDS: Pantoprazole 40 MG VIAL IVP SCH (08:26)
[2022-02-28] MEDS: Lactated Ringer's 1,000 ML IV SCH ×3 (11:17→20:43)
[2022-02-28] MEDS ORDERED: Rosuvastatin 20 MG TAB PO SCH (21:00)
[2022-03-01] MEDS ORDERED: Guaifenesin DM 100-10/5 ML UDCUP PO PRN (06:02)
[2022-03-01] MEDS: Levothyroxine Sodium 50 MCG TAB PER TUBE SCH (06:12)
[2022-03-01] MEDS: Clopidogrel Bisulfate 75 MG TAB PER TUBE SCH (09:07)
[2022-03-01] MEDS: Pantoprazole 40 MG VIAL IVP SCH (09:07)
[2022-03-01] MEDS: Aspirin 325 MG TAB PER TUBE SCH (09:07)
[2022-03-01] MEDS: Senokot S 8.6-50 MG TAB PO SCH (09:08)
[2022-03-01] MEDS: Polyethylene Glycol 3350 17 GM Packet PER TUBE SCH (09:08)
[2022-03-01 16:05] VITALS: BP 148/73; TEMP 98.1
[2022-03-01] MEDS ORDERED: Apixaban 5 MG TAB PO SCH (21:00)
== END 2022-03-01 17:47 | disposition home or self-care (01) | DRG 69 ==
LOC: ERS 14:00 → CCU 15:59 → NEURO 02-28 16:43
PROVIDERS: ADMIT Internal Medicine; ATTEND Internal Medicine
PROC: 5A1945Z Respiratory Ventilation, 24-96 Consecutive Hours (ICD-10-PCS; principal; 2022-02-24)
DX: G45.9 Transient cerebral ischemic attack, unspecified (principal); Z92.82 Status post administration of tPA (rtPA) in a different facility within the last 24 hours prior to admission to current facility; J96.01 Acute respiratory failure with hypoxia; G93.41 Metabolic encephalopathy; E87.3 Alkalosis; Z20.822 Contact with and (suspected) exposure to COVID-19; E87.6 Hypokalemia; E03.9 Hypothyroidism, unspecified; G43.909 Migraine, unspecified, not intractable, without status migrainosus; E78.5 Hyperlipidemia, unspecified; R56.9 Unspecified convulsions; Z78.1 Physical restraint status; Z88.2 Allergy status to sulfonamides; Z88.8 Allergy status to other drugs, medicaments and biological substances; Z79.899 Other long term (current) drug therapy; Z79.82 Long term (current) use of aspirin; Z86.73 Personal history of transient ischemic attack (TIA), and cerebral infarction without residual deficits
CPT/HCPCS: 36415; 36416; 36600; 70450; 70551; 71045; 74230; 80048; 80061; 82805; 83735; 84443; 85025; 93306; 94002; 94003; 95712; 95819; 95957; 96365; 96366; C9113; J0360; J1953; J3475; J3480; J7120; U0002

== ENCOUNTER 2022-07-09 18:39 | Inpatient (IN) | payer MEDICARE, OTHER ==
[~2022-07-09 18:39] MED LIST: Iopamidol-370 76% 500 ML MDV (1 ML CHARGE) ONE
[2022-07-09] MEDS ORDERED: LORazepam 2 MG/ML SYR.(CARPUJECT) ONE (18:54)
[2022-07-09] MEDS ORDERED: hydrALAZINE 20 MG/ML VIAL ONE (19:49)
[2022-07-09] MEDS ORDERED: Labetalol HCl 100 MG/20 ML VIAL ONE (20:46)
[2022-07-09] MEDS ORDERED: Ondansetron PF 4 MG/2 ML Vial IVP PRN (21:23)
[2022-07-09] MEDS ORDERED: Acetaminophen 650 MG Suppository PR PRN (21:23)
[2022-07-09] MEDS ORDERED: Labetalol HCl 100 MG/20 ML VIAL SLOW IVP PRN (21:25)
[2022-07-09] MEDS ORDERED: hydrALAZINE 20 MG/ML VIAL SLOW IVP PRN (21:25)
[2022-07-09] MEDS ORDERED: niCARdipine 25 MG in Sodium Chloride 0.9% 250 ML 250 ML IVPB PRN (21:25)
[2022-07-09] MEDS ORDERED: NO ANTITHROMBOTICS FS SCH (21:25)
[2022-07-09 22:46] VITALS: BMI 19.3
[2022-07-10] MEDS: Lactated Ringer's 1,000 ML IV SCH ×2 (02:05→20:50)
[2022-07-10] MEDS ORDERED: levETIRAcetam 500 MG/5 ML VIAL SLOW IVP SCH (09:00)
[2022-07-10] MEDS: Famotidine/PF 20 mg/2ml Vial SLOW IVP SCH (09:52)
[2022-07-10] MEDS ORDERED: Lorazepam 2 MG/ML VIAL ONE (11:57)
[2022-07-10] MEDS: Acetaminophen 325 MG TAB PO PRN ×2 (15:55→20:44)
[2022-07-10] MEDS: Rosuvastatin 20 MG TAB PO SCH (20:34)
[2022-07-10] MEDS ORDERED: Rosuvastatin 20 MG TAB PO SCH (21:00)
[2022-07-11] MEDS ORDERED: Lactated Ringer's 1,000 ML IV SCH (05:45)
[2022-07-11] MEDS: Lactated Ringer's 1,000 ML IV SCH ×2 (06:43→22:03)
[2022-07-11] MEDS: Famotidine/PF 20 mg/2ml Vial SLOW IVP SCH (08:25)
[2022-07-11 11:35] LABS: #Lymphocytes 1.4 thou/uL (1.20-3.40); #Monocytes 0.7 thou/uL (0.11-0.59); #Neutrophils 6.2 thou/uL (1.40-6.50); %Basophils 0.4 % (0.0-1.0); %Eosinophils 0.5 % (0.0-10.0); %Lymphocytes 16.9 % (21.0-51.0); %Monocytes 7.8 % (0.0-10.0); %Neutrophils 74.4 % (42.0-75.0); Hemoglobin 14.4 g/dL (12.0-16.0); Mean Corpuscular Hemoglobin 32.9 pg (27.0-31.0); Mean Corpuscular Volume 96.8 fl (78.0-98.0); Platelet Count 188 10x3/uL (130-400); RBC Distribution Width 11.8 % (11.5-14.5); Red Blood Cell (RBC) Count 4.36 mill/uL (4.20-5.40); White Blood Cell (WBC) Count 8.3 10x3/uL (4.8-10.8)
[2022-07-11] MEDS ORDERED: Docusate 100 MG CAP PO PRN (11:52)
[2022-07-11 11:58] LABS: ALT (SGPT) 9 U/L (8-55); AST (SGOT) 18 U/L (5-34); Albumin 3.8 g/dL (3.4-4.8); Alkaline Phosphatase 53 U/L (40-110); Anion Gap 12 mmol/L (10-20); BUN (Urea Nitrogen) 18 mg/dL (9.8-20.1); Bilirubin, Total 0.7 mg/dL (0.2-1.2); Calc. Creatinine Clearance 46 mL/min (70-130); Calcium 9.4 mg/dL (7.8-10.44); Carbon Dioxide 23 mmol/L (23-31); Chloride 108 mmol/L (98-107); Estimated GFR 88; Globulin 2.6 g/dL (2.4-3.5); Glucose 137 mg/dL (83-110); Potassium 4.1 mmol/L (3.5-5.1); Protein, Total 6.4 g/dL (5.8-8.1); Sodium 139 mmol/L (136-145)
[2022-07-11] MEDS ORDERED: SODIUM CHLORIDE 0.9% IVPB SCH (16:30)
[2022-07-11] MEDS ORDERED: FOSPHENYTOIN SODIUM IVPB SCH (16:30)
[2022-07-11] MEDS: Lorazepam 2 MG/ML VIAL SLOW IVP PRN (19:42)
[2022-07-11] MEDS: Rosuvastatin 20 MG TAB PO SCH (22:04)
[2022-07-12] MEDS: Lorazepam 2 MG/ML VIAL SLOW IVP PRN (00:03)
[2022-07-12] MEDS: Lorazepam 2 MG/ML VIAL SLOW IVP SCH ×2 (00:07→00:09)
[2022-07-12] MEDS ORDERED: Haloperidol Lactate 5 MG/ML VIAL SLOW IVP SCH (01:45)
[2022-07-12] MEDS ORDERED: Fosphenytoin Sodium 200 MG in Sodium Chloride 0.9% 50 ML IVPB SCH (09:00)
[2022-07-12 09:10] LABS: #Eosinphils 0.1 thou/uL (0.0-0.7); #Lymphocytes 1.6 thou/uL (1.20-3.40); #Monocytes 0.6 thou/uL (0.11-0.59); #Neutrophils 4.1 thou/uL (1.40-6.50); %Basophils 0.5 % (0.0-1.0); %Eosinophils 1.9 % (0.0-10.0); %Lymphocytes 24.1 % (21.0-51.0); %Monocytes 9.8 % (0.0-10.0); %Neutrophils 63.8 % (42.0-75.0); Hemoglobin 15.1 g/dL (12.0-16.0); Mean Corpuscular HGB CONC 33.9 g/dL (32.0-36.0); Mean Corpuscular Hemoglobin 32.7 pg (27.0-31.0); Mean Corpuscular Volume 96.6 fl (78.0-98.0); Mean Platelet Volume 7.1 fL (7.4-10.4); Platelet Count 174 10x3/uL (130-400); RBC Distribution Width 11.7 % (11.5-14.5); Red Blood Cell (RBC) Count 4.62 mill/uL (4.20-5.40); White Blood Cell (WBC) Count 6.5 10x3/uL (4.8-10.8)
[2022-07-12] MEDS: Fosphenytoin Sodium 150 MG in Sodium Chloride 0.9% 50 ML IVPB SCH ×2 (09:16→21:10)
[2022-07-12] MEDS: Famotidine/PF 20 mg/2ml Vial SLOW IVP SCH (09:17)
[2022-07-12 09:18] LABS: Anion Gap 8 mmol/L (10-20); BUN (Urea Nitrogen) 13 mg/dL (9.8-20.1); Calc. Creatinine Clearance 50 mL/min (70-130); Calcium 9.2 mg/dL (7.8-10.44); Carbon Dioxide 28 mmol/L (23-31); Chloride 108 mmol/L (98-107); Estimated GFR 90; Glucose 103 mg/dL (83-110); Magnesium 1.9 mg/dL (1.6-2.6); Phosphorus 2.2 mg/dL (2.3-4.7); Potassium 3.5 mmol/L (3.5-5.1); Sodium 140 mmol/L (136-145)
[2022-07-12] MEDS: Lactated Ringer's 1,000 ML IV SCH ×2 (11:41→22:05)
[2022-07-12] MEDS: Acetaminophen 325 MG TAB PO PRN ×2 (16:13→21:10)
[2022-07-12] MEDS ORDERED: QUEtiapine 25 MG TAB PO SCH (20:00)
[2022-07-12] MEDS ORDERED: Carvedilol 6.25 MG TAB PO SCH (21:00)
[2022-07-12] MEDS ORDERED: Apixaban 5 MG TAB PO SCH (21:00)
[2022-07-12] MEDS: Rosuvastatin 20 MG TAB PO SCH (21:09)
[2022-07-12 23:16] VITALS: BP 136/68; TEMP 97.9
[2022-07-13] MEDS ORDERED: Levothyroxine Sodium 50 MCG TAB PO SCH (06:00)
[2022-07-13] MEDS ORDERED: Losartan 25 MG TAB PO SCH (09:00)
== END 2022-07-13 02:20 | disposition short-term general hospital (02) | DRG 101 ==
LOC: ERS 18:39 → CCU 20:51 → NEURO 07-11 13:00
PROVIDERS: ADMIT Internal Medicine; ATTEND Family Medicine
DX: G40.909 Epilepsy, unspecified, not intractable, without status epilepticus (principal); E87.3 Alkalosis; G81.91 Hemiplegia, unspecified affecting right dominant side; Z92.82 Status post administration of tPA (rtPA) in a different facility within the last 24 hours prior to admission to current facility; Z20.822 Contact with and (suspected) exposure to COVID-19; I10 Essential (primary) hypertension; E03.9 Hypothyroidism, unspecified; F17.210 Nicotine dependence, cigarettes, uncomplicated; R29.74 NIHSS score 40-42; R29.810 Facial weakness; R73.9 Hyperglycemia, unspecified; R47.1 Dysarthria and anarthria; R33.9 Retention of urine, unspecified; Z88.2 Allergy status to sulfonamides; Z88.8 Allergy status to other drugs, medicaments and biological substances; Z79.890 Hormone replacement therapy; Z79.899 Other long term (current) drug therapy; Z79.01 Long term (current) use of anticoagulants; Z90.710 Acquired absence of both cervix and uterus; Z90.49 Acquired absence of other specified parts of digestive tract
CPT/HCPCS: 36415; 36416; 70450; 70496; 70498; 70551; 80048; 80053; 83735; 84100; 85025; 93306; 95712; 95816; 95819; 95957; 96374; 96375; 99292; J0360; J1630; J2060; J7120; Q2009; Q9967; S0028; U0003; U0005